=== PATIENT | male | born 1935 | race Caucasian/White ===

== ENCOUNTER → 2018-06-20 07:18 | Outpatient (REF) | payer MEDICARE, OTHER, SELFPAY ==
[2018-06-20 09:15] LABS: Add Manual Diff / Slide Review NO; Basophils Percent Auto 1.2 % (0-2); Eosinophils Percent Auto 3.9 % (2-4); Hematocrit 33.6 % (41-53); Hemoglobin 11.1 g/dL (13.5-17.5); Lymphocytes Percent Auto 17.7 % (25-40); Mean Corpuscular Hemoglobin 28.2 PG (26-34); Mean Corpuscular Volume 85.6 fL (80-100); Neutrophils Absolute Auto 4800 /uL (3000-5900); Neutrophils Percent Auto 68.2 % (50-75); Platelet Count 290 X10^3/uL (150-400); Red Blood Cell Count 3.92 X10^6/uL (4.5-5.9); Red Cell Distribution Width 14.9 % (11.6-14.8); White Blood Cell Count 7.1 X10^3/uL (4.5-11.0)
[2018-06-20 09:37] LABS: BUN Creatinine Ratio 17.5 (6-22); Blood Urea Nitrogen 21 mg/dL (9-20); Calcium 8.3 mg/dL (8.4-10.2); Carbon Dioxide 33 mmol/L (22-32); Chloride 99 mmol/L (98-107); Estimated Glomerular Filt Rate 58.1 mL/min (>60); Glucose 203 mg/dL (80-110); HEMOLYSIS < 15 (0-50); Potassium 4.1 mmol/L (3.4-5.1); Sodium 139 mmol/L (137-145)
== END ==
LOC: LAB 07:18
PROVIDERS: Visit Provider Hospitalist
DX: I25.10 Atherosclerotic heart disease of native coronary artery without angina pectoris (principal)
CPT/HCPCS: 36415; 80048; 85025

== ENCOUNTER → 2022-02-09 16:57 | Outpatient (CLI) | payer MEDICARE, OTHER, SELFPAY ==
--- NOTE | 2022-02-09 17:01 | DI.US.S_ITS ---
PROCEDURE: US CAROTID DOPPLER BI INDICATIONS: CAD/HYPERTENSION/BILATERAL CAROTID OCCLUSION TECHNIQUE: Color and pulse Doppler interrogation was performed of both carotid systems, with image documentation and velocity measurements. COMPARISON: None. FINDINGS: Stenosis calculations are based on SRU (Society of Radiologists in Ultrasound) criteria. Right side: Brachial blood pressure: 85/55 mm Hg. Common carotid artery peak systolic velocity: 70 cm/sec. Internal carotid artery peak systolic velocity: 66 cm/sec. Internal carotid artery end diastolic velocity: 24 cm/sec. External carotid artery peak systolic velocity: 88 cm/sec. ICA/CCA peak systolic ratio: 2.8. Layton scale imaging description: Atheromatous plaque is present at the carotid bifurcation Percent internal carotid artery stenosis: 50-69% stenosis. Vertebral artery: Flow direction is antegrade. Left side: Brachial blood pressure: 84/50 mm Hg. Common carotid artery peak systolic velocity: 58 cm/sec. Internal carotid artery peak systolic velocity: Occluded Internal carotid artery end diastolic velocity: Occluded External carotid artery peak systolic velocity: 81 cm/sec. ICA/CCA peak systolic ratio: Not applicable Layton scale imaging description: The left internal carotid artery is occluded. Percent internal carotid artery stenosis: Occluded Vertebral artery: Flow direction is antegrade. IMPRESSION: 1. 50-69% stenosis of the right internal carotid artery. 2. Occluded left internal carotid artery. Dictated by: Stephie Mendoza M.D. on 02/10/2022 at 9:05 Approved by: Stephie Mendoza M.D. on 02/10/2022 at 9:10
== END ==
PROVIDERS: PCP Internal Medicine; Referring Provider Internal Medicine Cardiovascular Disease; Visit Provider Internal Medicine Cardiovascular Disease
DX: I25.10 Atherosclerotic heart disease of native coronary artery without angina pectoris (principal); I10 Essential (primary) hypertension; I65.23 Occlusion and stenosis of bilateral carotid arteries
CPT/HCPCS: 93880

== ENCOUNTER → 2022-04-10 11:40 | Outpatient (CLI) | payer MEDICARE, OTHER, SELFPAY ==
[2022-04-10 12:46] LABS: COVID19 -Nasal RAPID Negative (Negative)
== END ==
PROVIDERS: PCP Internal Medicine; Referring Provider Internal Medicine; Visit Provider Internal Medicine
DX: Z01.812 Encounter for preprocedural laboratory examination (principal); Z20.822 Contact with and (suspected) exposure to COVID-19; J42 Unspecified chronic bronchitis; J96.11 Chronic respiratory failure with hypoxia; Z87.891 Personal history of nicotine dependence; J98.8 Other specified respiratory disorders
CPT/HCPCS: 87635; 94060; 94726; 94729; C9803

== ENCOUNTER → 2022-04-10 11:44 | Outpatient (CLI) | payer MEDICARE, OTHER, SELFPAY ==
--- NOTE | 2022-04-15 08:02 | PM.PFT.1 ---
Pulmonary Function Test Referral & Results Date Patient Seen: 04/10/22 Requesting provider: Darryl Davis Results: The spirometry demonstrates an FVC of 3.21 L which is 77% of predicted. The FEV1 was measured at 2.35 L which is 80% of predicted. The FEV1/FVC ratio was 73 which is 104% of predicted. Following the administration of bronchodilator there was no notable change. Lung volumes show an SVC of 3.19 L which is 69% of predicted. The diffusing capacity was measured at 15.79 which is 45% of predicted. No hemoglobin value was provided, so no correction for potential anemia could be made, if appropriate. The maximum voluntary ventilation was reduced slightly Interpretation: This study demonstrates possibly very mild obstructive lung disease based on minimal reduction FEV1 although FEV1/FVC ratio is preserved and there is no evidence of benefit following bronchodilator There is a moderate reduction in lung volumes suggesting [id number] restrictive lung disease which probably explains the abnormality in the FEV1 above There is a moderately severe reduction diffusing capacity suggesting significant disease at the capillary alveolar level, unless patient is anemic Compared to PFTs performed in January of 2012, current study shows improvement in FEV1, otherwise is unchanged both in lung volumes and diffusing capacity Clinical correlation suggested
== END ==
PROVIDERS: PCP Internal Medicine; Referring Provider Internal Medicine; Visit Provider Internal Medicine
DX: J42 Unspecified chronic bronchitis (principal); J96.11 Chronic respiratory failure with hypoxia; Z87.891 Personal history of nicotine dependence; J98.8 Other specified respiratory disorders
CPT/HCPCS: 94060; 94726; 94729

== ENCOUNTER → 2022-10-01 14:45 | Outpatient (CLI) | payer MEDICARE, OTHER, SELFPAY ==
--- NOTE | 2022-10-01 | DI.US.S_ITS ---
PROCEDURE: US CAROTID DOPPLER BI INDICATIONS: Occlusion and stenosis of bilateral carotid arteries TECHNIQUE: Color and pulse Doppler interrogation was performed of both carotid systems, with image documentation and velocity measurements. COMPARISON: [facility], , US CAROTID DOPPLER BI, 02/09/2022, 17:13. FINDINGS: Stenosis calculations are based on SRU (Society of Radiologists in Ultrasound) criteria. Right side: Brachial blood pressure: 103/60 mm Hg. Common carotid artery peak systolic velocity: 78.2 cm/sec. Internal carotid artery peak systolic velocity: 75.6 cm/sec. Internal carotid artery end diastolic velocity: 23.1 cm/sec. External carotid artery peak systolic velocity: 88.9 cm/sec. ICA/CCA peak systolic ratio: 1.0. Layton scale imaging description: Mild atherosclerotic calcifications are seen in distal common carotid artery and proximal internal and external carotid arteries Percent internal carotid artery stenosis: Less than 50%. Vertebral artery: Flow direction is antegrade. Left side: Brachial blood pressure: 112/63 mm Hg. Common carotid artery peak systolic velocity: 93.9 cm/sec. Internal carotid artery peak systolic velocity: 26.1 cm/sec. Internal carotid artery end diastolic velocity: 6.3 cm/sec. External carotid artery peak systolic velocity: 132.1 cm/sec. ICA/CCA peak systolic ratio: 0.3. Layton scale imaging description: There is occlusion of left internal carotid artery just distal to its origin with absence of flow. Percent internal carotid artery stenosis: Occlusion.. Vertebral artery: Flow direction is antegrade. IMPRESSION: 1. Occlusion of proximal to mid left internal carotid artery . 2. Less than 50% stenosis is seen in proximal right internal carotid artery. Dictated by: Jesus Rutledge M.D. on 10/01/2022 at 17:12 Approved by: Jesus Rutledge M.D. on 10/01/2022 at 17:14
== END ==
PROVIDERS: Referring Provider Nurse Practitioner; Visit Provider Nurse Practitioner
DX: I65.23 Occlusion and stenosis of bilateral carotid arteries (principal)
CPT/HCPCS: 93880

== ENCOUNTER → 2023-06-29 14:50 | Outpatient (CLI) | payer MEDICARE, OTHER, SELFPAY ==
--- NOTE | 2023-06-29 14:51 | DI.US.S_ITS ---
PROCEDURE: US CAROTID DOPPLER BI INDICATIONS: Disorder of arteries and arterioles, unspecified TECHNIQUE: Color and pulse Doppler interrogation was performed of both carotid systems, with image documentation and velocity measurements. COMPARISON: [facility], US CAROTID DOPPLER BI, 02/09/2022, 17:13. [facility], US CAROTID DOPPLER BI, 10/01/2022, 15:21. FINDINGS: Stenosis calculations are based on SRU (Society of Radiologists in Ultrasound) criteria. Right side: Brachial blood pressure: 110/59 mm Hg. Common carotid artery peak systolic velocity: 107 cm/sec. Internal carotid artery peak systolic velocity: 102 cm/sec. Internal carotid artery end diastolic velocity: 37 cm/sec. External carotid artery peak systolic velocity: 104 cm/sec. ICA/CCA peak systolic ratio: 1.0 . Layton scale imaging description: Minimal to mild plaque Percent internal carotid artery stenosis: Less than 50% stenosis . Vertebral artery: Flow direction is antegrade. Left side: Brachial blood pressure: 123/66 mm Hg. Common carotid artery peak systolic velocity: 84 cm/sec. Internal carotid artery peak systolic velocity: Occluded Internal carotid artery end diastolic velocity: Occluded External carotid artery peak systolic velocity: 118 cm/sec. ICA/CCA peak systolic ratio: 0.3 . Layton scale imaging description: Occlusion within the mid and distal portion. Vertebral artery: Flow direction is antegrade. IMPRESSION: Less than 50% stenosis of the right internal carotid artery. There is occlusion of the mid and distal portion of the left internal carotid artery, as previously present. Dictated by: Sanaz Lewis M.D. on 06/29/2023 at 17:56 Approved by: Sanaz Lewis M.D. on 06/29/2023 at 17:58
== END ==
PROVIDERS: Referring Provider Internal Medicine Cardiovascular Disease; Visit Provider Internal Medicine Cardiovascular Disease
DX: I77.9 Disorder of arteries and arterioles, unspecified (principal); I65.23 Occlusion and stenosis of bilateral carotid arteries
CPT/HCPCS: 93880

== ENCOUNTER → 2023-12-15 15:05 | Outpatient (CLI) | payer MEDICARE, OTHER, SELFPAY ==
--- NOTE | 2023-12-15 15:06 | DI.US.S_ITS ---
PROCEDURE: US CAROTID DOPPLER BI INDICATIONS: Disorder of arteries and arterioles, unspecified TECHNIQUE: Color and pulse Doppler interrogation was performed of both carotid systems, with image documentation and velocity measurements. COMPARISON: [facility], , US CAROTID DOPPLER BI, 06/29/2023, 15:02. FINDINGS: Stenosis calculations are based on SRU (Society of Radiologists in Ultrasound) criteria. Right side: Brachial blood pressure: 111/54 mm Hg. Common carotid artery peak systolic velocity: 82 cm/sec. Internal carotid artery peak systolic velocity: 73 cm/sec, compared to 102 centimeters/second. Internal carotid artery end diastolic velocity: 22 cm/sec. External carotid artery peak systolic velocity: 71 cm/sec. ICA/CCA peak systolic ratio: 0.9 . Layton scale imaging description: Mild plaque at the bifurcation Percent internal carotid artery stenosis: Less than 50% stenosis . Vertebral artery: Flow direction is antegrade. Left side: Brachial blood pressure: 113/53 mm Hg. Common carotid artery peak systolic velocity: 64 cm/sec. Internal carotid artery peak systolic velocity: 40 cm/sec, previously felt to be occluded. Internal carotid artery end diastolic velocity: Occluded with very minimal residual flow, 1 centimeter/second identified on prior exam External carotid artery peak systolic velocity: 121 cm/sec. ICA/CCA peak systolic ratio: 0.6 . Layton scale imaging description: Moderate plaque with near complete occlusion at the internal carotid artery Percent internal carotid artery stenosis: Near occlusion Vertebral artery: Flow direction is antegrade. IMPRESSION: Left internal carotid artery demonstrates near complete occlusion documenting 40 centimeters/second flow. It is noted no visualized flow was identified on prior exam. Right internal carotid artery is stable demonstrating less than 50% stenosis. Dictated by: Sanaz Lewis M.D. on 12/15/2023 at 16:25 Approved by: Sanaz Lewis M.D. on 12/15/2023 at 16:27
== END ==
PROVIDERS: Referring Provider Internal Medicine Cardiovascular Disease; Visit Provider Internal Medicine Cardiovascular Disease
DX: I65.23 Occlusion and stenosis of bilateral carotid arteries; I25.10 Atherosclerotic heart disease of native coronary artery without angina pectoris; R00.1 Bradycardia, unspecified
CPT/HCPCS: 93880